=== PATIENT | female | born 1970 | race Two or more races ===

== ENCOUNTER 2020-06-04 15:46 | Emergency (ER) | payer MEDICAID ==
[~2020-06-04] VITALS: Ht 157.5 cm; Wt 71.7 kg
[~2020-06-04 15:46] MED LIST: ALPR0.5T; ALPR0.5T10; AMITRIP; GABA-339; NOR10T; SIMV-13; TRIA1CAP5; VENL150C2
[2020-06-04 16:12] VITALS: BP 141/74
[2020-06-04] MEDS ORDERED: cefTRIAXone SOD 1,000 MG VL IM ONE (17:15)
[2020-06-04] MEDS ORDERED: KETOROLAC TROMETH 60MG/2ML VIAL IM ONE (17:15)
== END 2020-06-04 18:24 | disposition home or self-care (01) ==
LOC: ER 15:46
DX: K04.7 Periapical abscess without sinus (principal); F17.210 Nicotine dependence, cigarettes, uncomplicated
CPT/HCPCS: 96372; 99284; J0696; J1885

== ENCOUNTER 2021-10-11 23:01 | Emergency (ER) | payer BC, MEDICAID ==
[~2021-10-11] VITALS: Ht 157.5 cm; Wt 77.1 kg
[~2021-10-11 23:01] MED LIST changes: +AMIT25TA11; -AMITRIP; -VENL150C2; +VENL150C3
[2021-10-12] MEDS ORDERED: cefTRIAXone SOD 1,000 MG VL IM ONE (06:45)
[2021-10-12] MEDS ORDERED: KETOROLAC TROMETH 60MG/2ML VIAL IM ONE (06:45)
[2021-10-12] MEDS ORDERED: AMOXICILLIN/CLAVUL 875 MG TAB PO ONE (06:45)
[2021-10-12] MEDS ORDERED: AMOX-277 PO (07:13)
[2021-10-12] MEDS ORDERED: ACE3T PO (07:13)
[2021-10-12 08:00] VITALS: BP 128/80
[2021-10-12] MEDS ORDERED: BACITRACIN TOP OINT 1 UD PKG TOP ONE ×2 (08:00)
== END 2021-10-12 08:12 | disposition home or self-care (01) ==
LOC: EDBD 23:01 → ER 23:03
DX: S62.633B Displaced fracture of distal phalanx of left middle finger, initial encounter for open fracture (principal); S62.635B Displaced fracture of distal phalanx of left ring finger, initial encounter for open fracture; S62.637B Displaced fracture of distal phalanx of left little finger, initial encounter for open fracture; F17.210 Nicotine dependence, cigarettes, uncomplicated; E78.5 Hyperlipidemia, unspecified; W54.0XXA Bitten by dog, initial encounter; Y93.89 Activity, other specified; Y92.89 Other specified places as the place of occurrence of the external cause; Y99.8 Other external cause status
CPT/HCPCS: 11730; 12001; 73140; 96372; 99284; J0696; J1885

== ENCOUNTER 2021-10-14 12:22 | Emergency (ER) | payer BC, MEDICAID ==
[~2021-10-14] VITALS: Ht 157.5 cm; Wt 77.1 kg
[~2021-10-14 12:22] MED LIST changes: +ACE3T PO; +AMOX-277 PO
[2021-10-14] MEDS ORDERED: BACITRACIN-POLYMYXIN B OPTH(EYE) OINT 3.5GM OP ONE (13:30)
[2021-10-14] MEDS ORDERED: BACITRACIN-POLYMYXIN B TOPICAL OINT UD TOP ONE (13:30)
[2021-10-14] MEDS ORDERED: cefTRIAXone SOD 1,000 MG VL IM ONE (13:30)
[2021-10-14 13:53] VITALS: BP 152/75
== END 2021-10-14 14:23 | disposition home or self-care (01) ==
LOC: ER 12:22
DX: S62.633D Displaced fracture of distal phalanx of left middle finger, subsequent encounter for fracture with routine healing (principal); S62.625D Displaced fracture of middle phalanx of left ring finger, subsequent encounter for fracture with routine healing; F17.210 Nicotine dependence, cigarettes, uncomplicated; E78.5 Hyperlipidemia, unspecified; Z86.2 Personal history of diseases of the blood and blood-forming organs and certain disorders involving the immune mechanism; Z79.899 Other long term (current) drug therapy; W54.0XXD Bitten by dog, subsequent encounter
CPT/HCPCS: 29130; 96372; J0696

== ENCOUNTER 2021-10-16 08:50 | Emergency (ER) | payer BC, MEDICAID ==
[~2021-10-16] VITALS: Ht 157.5 cm; Wt 77.1 kg
[2021-10-16 09:19] VITALS: BP 147/70
== END 2021-10-16 09:30 | disposition home or self-care (01) ==
LOC: ER 08:50
DX: S61.213D Laceration without foreign body of left middle finger without damage to nail, subsequent encounter (principal); E78.5 Hyperlipidemia, unspecified; F17.210 Nicotine dependence, cigarettes, uncomplicated; Z98.51 Tubal ligation status; X58.XXXD Exposure to other specified factors, subsequent encounter

== ENCOUNTER 2021-10-19 11:17 | Emergency (ER) | payer BC, MEDICAID ==
[~2021-10-19] VITALS: Ht 157.5 cm; Wt 77.1 kg
[2021-10-19 15:58] VITALS: BP 134/64
[2021-10-19] MEDS ORDERED: CLIN300C8 PO (17:10)
[2021-10-19] MEDS ORDERED: CEPH-509 PO (17:10)
[2021-10-19] MEDS ORDERED: cefTRIAXone SOD 1,000 MG VL IM ONE (17:15)
== END 2021-10-19 18:01 | disposition home or self-care (01) ==
LOC: ER 11:17
DX: S62.603D Fracture of unspecified phalanx of left middle finger, subsequent encounter for fracture with routine healing (principal); S62.605D Fracture of unspecified phalanx of left ring finger, subsequent encounter for fracture with routine healing; S61.452D Open bite of left hand, subsequent encounter; E78.5 Hyperlipidemia, unspecified; F17.210 Nicotine dependence, cigarettes, uncomplicated; Z79.2 Long term (current) use of antibiotics; Z79.899 Other long term (current) drug therapy; W54.0XXD Bitten by dog, subsequent encounter
CPT/HCPCS: 73200; 96372; 99284; J0696

== ENCOUNTER 2023-12-17 13:50 | Emergency (ER) | payer MEDICAID ==
[~2023-12-17] VITALS: Ht 157.5 cm; Wt 77.4 kg
[~2023-12-17 13:50] MED LIST changes: -AMIT25TA11; +AMIT25TA19; -AMOX-277 PO; +AMOX875T4 PO; +CEPH-509 PO; +CLIN1CAP70 PO; -SIMV-13; +SIMV40TA18
[2023-12-17 14:59] VITALS: BP 127/89; PULSE 99; RESP 20; TEMP 97.6; O2SAT 97
[2023-12-17] MEDS ORDERED: ACETAMINOPHEN 500 MG TAB PO ONE (15:45)
[2023-12-17] MEDS ORDERED: IBUP-1456 PO (15:49)
[2023-12-17] MEDS ORDERED: METH-1182 PO (15:49)
== END 2023-12-17 15:54 | disposition home or self-care (01) ==
LOC: ER 13:50
DX: S16.1XXA Strain of muscle, fascia and tendon at neck level, initial encounter (principal); M23.8X2 Other internal derangements of left knee; M19.90 Unspecified osteoarthritis, unspecified site; E78.5 Hyperlipidemia, unspecified; F32.9 Major depressive disorder, single episode, unspecified; F17.210 Nicotine dependence, cigarettes, uncomplicated; Z86.2 Personal history of diseases of the blood and blood-forming organs and certain disorders involving the immune mechanism; Z98.890 Other specified postprocedural states; Z79.899 Other long term (current) drug therapy; V89.2XXA Person injured in unspecified motor-vehicle accident, traffic, initial encounter; Y93.89 Activity, other specified; Y92.89 Other specified places as the place of occurrence of the external cause; Y99.8 Other external cause status
CPT/HCPCS: 72040; 73562